=== PATIENT | male | born 1955 | race Caucasian/White ===

== ENCOUNTER 2016-06-28 06:08 | Inpatient (IN) | payer BC ==
[2016-06-07 11:13] VITALS: BMI 32.0
--- NOTE | 2016-06-07 11:46 | PAT Medication Instructions ---
Service Date Jun 07, 2016. Current Home Medication List Amlodipine Besylate-Olmesartan (Donaldo), 20 MG PO QAM Cholecalciferol (Vitamin D3), 1 TAB PO QAM [place] Dextrin (Fiber Powder), 1 DOSE PO BID Fish Oil ([place]-3), 2,000 MG PO QAM Hydrochlorothiazide (Hctz), 25 MG PO QAM Metoprolol Tartrate (Lopressor) (Lopressor), 25 MG PO BID Multivitamin (Multivitamin), 1 TAB PO QAM Naproxen (Aleve), 440 MG PO PRN Medication Instructions For Your Scheduled Surgery - Check with surgeon for instructions: Naproxen (Aleve), 440 MG PO PRN - Hold the following medications 2 weeks prior to surgery: Fish Oil ([place]-3), 2,000 MG PO QAM - Hold the following medications the morning of surgery: Multivitamin (Multivitamin), 1 TAB PO QAM [place] Dextrin (Fiber Powder), 1 DOSE PO BID Cholecalciferol (Vitamin D3), 1 TAB PO QAM Hydrochlorothiazide (Hctz), 25 MG PO QAM Amlodipine Besylate-Olmesartan (Donaldo), 20 MG PO QAM - Take the following medications the morning of surgery with a sip of water: Metoprolol Tartrate (Lopressor) (Lopressor), 25 MG PO BID - Take the following medications as scheduled the night before surgery: Metoprolol Tartrate (Lopressor) (Lopressor), 25 MG PO BID [place] Dextrin (Fiber Powder), 1 DOSE PO BID If you have any questions please call us at [phone] (Kayley Poole PA-C) or [phone] or [phone]
--- NOTE | 2016-06-07 12:23 | DIAGNOSTIC IMAGING REPORT ---
CHEST 2 VIEWS ROUTINE CLINICAL HISTORY: Preoperative chest COMPARISON STUDY: No previous studies for comparison. FINDINGS: The cardiac and mediastinal contours are normal. There is no evidence of focal pulmonary consolidation. There is no evidence of failure. No pleural effusions are visualized.[ There are minor basilar atelectatic changes IMPRESSION: No active disease in the chest. Electronically signed by: Ciro Nunez M.D. 06/07/2016 12:21 PM Dictated Date/Time: 06/07/2016 12:20 PM
[2016-06-07 12:51] LABS: URINE APPEARANCE CLEAR (CLEAR); URINE BILIRUBIN NEG (NEG); URINE COLOR YELLOW; URINE NITRITE NEG (NEG); URINE SPECIFIC GRAVITY 1.018 (1.000-1.030); UROBILINOGEN NEG (NEG); ZZUR CULT IF INDIC CLEAN CATCH NO
[2016-06-07 12:52] LABS: MANUAL MICROSCOPIC REQUIRED? NO; REVIEW REQ? NO
[2016-06-07 13:10] LABS: PROTHROMBIN TIME (PATIENT) 10.8 SECONDS (9.0-12.0)
[2016-06-07 13:13] LABS: BASO % 0.5 %; BASO ABS # 0.03 K/uL (0-0.2); COMPLETE YES; EOS % 2.2 %; IG% 0.2 %; LYMPH % 40.2 %; MEAN CORPUSCULAR HEMOGLOBIN 32.3 pg (25-34); MEAN CORPUSCULAR HGB CONC 36.3 g/dl (32-36); MEAN PLATELET VOLUME 10.7 fL (7.4-10.4); MONO % 10.1 %; NEUT % 46.8 %; PLATELET COUNT 175 K/uL (130-400); RED BLOOD COUNT 5.17 M/uL (4.7-6.1); WHITE BLOOD COUNT 5.47 K/uL (4.8-10.8)
[2016-06-07 13:25] LABS: BUN/CREATININE RATIO 11.1 (10-20); CALCIUM 9.3 mg/dl (8.5-10.1); CREATININE 0.98 mg/dl (0.60-1.40); POTASSIUM 3.7 mmol/L (3.5-5.1)
--- NOTE | 2016-06-27 13:03 | HISTORY & PHYSICAL EXAMINATION ---
DATE OF ADMISSION: 06/28/2016 CHIEF COMPLAINT: Right knee pain. HISTORY OF PRESENT ILLNESS: Bob is a 61-year-old male with a 10-year history of pain in his right knee. The patient rates his pain an 8/10. He has pain with his daily activities. He has limited standing and walking tolerance. Pain is worse with weightbearing. The patient has history of multiple knee arthroscopies. He has had anti-inflammatories, home exercise program, injections, bracing and physical therapy. He has failed conservative treatment and is scheduled for right total knee arthroplasty. PAST MEDICAL HISTORY: Negative. He denies heart disease, diabetes or DVT. PAST SURGICAL HISTORY: Right knee arthroscopy x2, tonsillectomy. SOCIAL HISTORY: The patient drinks 3-4 alcoholic drinks per week. He denies tobacco use. He lives in a 2-avi home. He is and retired. FAMILY HISTORY: Negative for DVT. MEDICATIONS: Metoprolol 25 mg twice daily, hydrochlorothiazide 25 mg daily, Donaldo 20 mg daily, multivitamin, fish oil, fiber, vitamin D, naproxen. ALLERGIES: None. REVIEW OF SYSTEMS: See HPI. Ten other systems reviewed, all negative. PHYSICAL EXAMINATION: VITAL SIGNS: Height 5 feet 11 inches, weight 232 pounds, BMI 32. GENERAL: This is a well-developed, well-nourished male who is alert and oriented x3. Mood and affect are appropriate. HEENT: Normocephalic, atraumatic. Mucous membranes are moist and intact. NECK: Supple without lymphadenopathy. HEART: Regular rate and rhythm without murmurs, rubs or gallops. LUNGS: Clear to auscultation without wheezes or rhonchi. ABDOMEN: Soft and nontender. Bowel sounds are equal and active. EXTREMITIES: No ecchymosis, redness or warmth. Thigh and calf are soft and nontender. He has varus deformity. Range of motion is from 0-115 degrees with +1 laxity. He is neurovascularly intact with +5/5 strength. X-RAY EXAMINATION: AP and lateral views show joint space narrowing and osteophyte formation. IMPRESSION: Degenerative joint disease, right knee. PLAN: The patient will be admitted for a right total knee arthroplasty. We will plan on aspirin for DVT prophylaxis. The patient's PCP is Dr. Regina Packer. He will have [facility] for home physical therapy.
[2016-06-28] VITALS (11 sets, daily range): BP systolic 108–141; BP diastolic 67–91; PULSE 73–87; TEMP 36.3–36.7; O2SAT 92–97; Ht 180.3 cm; Wt 105.9 kg
[~2016-06-28] VITALS: Ht 180.3 cm; Wt 105.9 kg
[~2016-06-28 06:08] MED LIST: ACETAMINOPHEN 500 MG TAB PO SCH; AMLO10TA PO; CEFAZOLIN 2000 MG/60 ML D5W 60 ML IV SCH; CHOL1000 PO; CORN1POW2 PO; CeleBREX 200 MG CAP PO SCH; DEXAMETHASONE 4 MG TAB PO SCH; FAMOTIDINE 20 MG TAB PO SCH; GABAPENTIN 300 MG CAP PO SCH; HYDR25TA4 PO; LACTATED RINGER'S 1000ML 1,000 ML IV SCH; LACTATED RINGER'S 1000ML 500 ML IV ONE; LACTATED RINGER'S 1000ML IV SCH; METO25TA56 PO; METOCLOPRAMIDE HCL 10 MG TAB PO SCH; MULT-506 PO; NAPR1TAB9 PO; OMEG10007 PO; OXYCODONE HCL 10 MG TABCR (OXYCONTIN) PO SCH; POLYMYXIN B SULFATE 100,000 UNITS in NSS 100ML IR SCH; ROPIVACAINE 5MG/ML 30 ML 150 MG, BUPIVACAINE/EPINEPHR 0.5% MPF 30 ML, KETOROLAC TROMETH... INFIL SCH; VANCOMYCIN INJ 400 MG in NSS 100ML IR SCH
[2016-06-28] MEDS ORDERED: PROPOFOL IV EMULSION 10 MG/ML 20 ML VIAL IV ONE ×2 (06:10→09:34)
[2016-06-28] MEDS ORDERED: MIDAZOLAM HCL 1 MG/ML 2ML VIAL ONE (06:10)
[2016-06-28] MEDS ORDERED: BUPIVACAINE 0.25% 30 ML VIAL ONE (06:26)
[2016-06-28] MEDS ORDERED: BUPIVACAINE 0.5 % 5 MG/1 ML PF 10ML VIAL ONE (06:26)
[2016-06-28] MEDS ORDERED: POVIDONE-IODINE OP SOLN 30 ML BTL ONE (06:56)
[2016-06-28] MEDS ORDERED: ORTHO JOINT ANESTHETIC ONE (06:56)
[2016-06-28] MEDS ORDERED: BACITRACIN 50000 UNIT VIAL ONE (06:56)
[2016-06-28] MEDS ORDERED: BUPIVACAINE/EPINEPHRINE 0.25% 1:200,000 30 ML VIAL ONE (06:56)
[2016-06-28] MEDS ORDERED: BUPIVACAINE/EPINEPHRINE 0.5% MPF 1:200,000 30 ML VIAL ONE (07:02)
--- NOTE | 2016-06-28 07:08 | History & Physical Bridge Note ---
H&P Re-Evaluation Bridge Note: I have examined the patient, reviewed the History & Physical and in the interval since the performance of the History & Physical I have noted the following changes of clinical significance: No changes noted
[2016-06-28] MEDS: TRANEXAMIC ACID INJ 1,000 MG in SODIUM CHLORIDE 0.9% 100ML 100 ML IV SCH ×2 (07:30→13:20)
[2016-06-28] MEDS ORDERED: ONDANSETRON INJ 2 MG/ML 2 ML VIAL IV PRN ×2 (09:15→10:30)
[2016-06-28] MEDS ORDERED: HYDROmorphone INJ 2 MG/ML SYR/VIAL IV PRN (09:15)
[2016-06-28] MEDS ORDERED: ATROPINE SULFATE 0.1 MG/ML 5ML SYR IV PRN (09:15)
[2016-06-28] MEDS ORDERED: EpHEDrine SULFATE INJ 50 MG/ML AMP IV PRN (09:15)
[2016-06-28] MEDS ORDERED: KETOROLAC TROMETHAMINE 30 MG/ML VIAL IV. PRN ×2 (09:15→10:30)
[2016-06-28] MEDS ORDERED: PHENYLEPHRINE 100MCG/ML 5ML SYR IV PRN (09:15)
[2016-06-28] MEDS ORDERED: POVIDONE-IODINE OP SOLN 30 ML BTL TOP ONE (10:26)
[2016-06-28] MEDS ORDERED: BUPIVACAINE/EPINEPHRINE 0.25% 1:200,000 30 ML VIAL INJ ONE (10:26)
[2016-06-28] MEDS ORDERED: BACITRACIN 50000 UNIT VIAL IR ONE (10:26)
[2016-06-28] MEDS ORDERED: ALUMINUM/MAGNESIUM/SIMETH (MAALOX MAX) 30 ML UDC PO PRN (10:30)
[2016-06-28] MEDS ORDERED: ZOLPIDEM TARTRATE 5 MG TAB PO PRN (10:30)
[2016-06-28] MEDS ORDERED: METOCLOPRAMIDE HCL INJ 5 MG/ML 2 ML VIAL IV PRN (10:30)
[2016-06-28] MEDS ORDERED: SOD PHOSPHATE/SOD BIPHOSPHATE ENEMA 132 ML BTL PR PRN (10:30)
[2016-06-28] MEDS ORDERED: MAGNESIUM HYDROXIDE SUSP 30 ML UDC PO PRN (10:30)
[2016-06-28] MEDS ORDERED: DiphenhydrAMINE HCL 50 MG/ML VIAL IV PRN (10:30)
[2016-06-28] MEDS ORDERED: MoRPHine SULFATE 2 MG/ML CARP IV PRN (10:30)
[2016-06-28] MEDS ORDERED: BISACODYL 10 MG SUPP PR PRN (10:30)
[2016-06-28] MEDS ORDERED: TRAMADOL HCL 50 MG TAB PO PRN (10:30)
--- NOTE | 2016-06-28 10:30 | [facility] Post Operative Brief Note ---
Immediate Operative Summary Operative Date Jun 28, 2016. Pre-Operative Diagnosis Degenerative joint disease, right knee Post-Operative Diagnosis Degenerative joint disease, right knee Procedure(s) Performed Right Total Knee Arthroplasty Surgeon Dr. Silvio Montgomery Admissions Representative Surgeon(s) Roselyn Lennon PA-C Estimated Blood Loss 50 mL Findings SEVERE DJD Specimens A: Right knee bone and tissue Complication(s) None Disposition Recovery Room / PACU
--- NOTE | 2016-06-28 11:28 | DIAGNOSTIC IMAGING REPORT ---
RIGHT KNEE 2 VIEWS CLINICAL HISTORY: Postop examination COMPARISON: None. DISCUSSION: There are postsurgical changes of a total right knee arthroplasty and patellar resurfacing. The femoral and tibial components appear well seated. There are overlying surgical drains. There is air within soft tissues consistent with history of recent surgery. IMPRESSION: Postsurgical changes of a total right hip arthroplasty. Electronically signed by: Ciro Nunez M.D. 06/28/2016 11:27 AM Dictated Date/Time: 06/28/2016 11:26 AM
--- NOTE | 2016-06-28 11:34 | Anesthesiology Progress Note ---
Anesthesia Post Op Note Date & Time Jun 28, 2016 at 11:35 Vital Signs Pain Intensity: 0 Vital Signs Past 12 Hours Date Time Temp Pulse Resp B/P Pulse Ox O2 Delivery O2 Flow Rate FiO2 06/28/16 11:30 86 19 131/80 96 Nasal Cannula 2 06/28/16 11:20 86 20 130/81 95 Nasal Cannula 2 06/28/16 11:10 86 16 133/79 96 Nasal Cannula 2 06/28/16 11:03 36.4 93 16 111/70 97 Nasal Cannula 2 06/28/16 06:31 36.4 73 20 141/91 97 Room Air Notes Mental Status: alert / awake / arousable, participated in evaluation Pt Amnestic to Procedure: Yes Nausea / Vomiting: adequately controlled Pain: adequately controlled Airway Patency, RR, SpO2: stable & adequate BP & HR: stable & adequate Hydration State: stable & adequate Anesthetic Complications: no major complications apparent
[2016-06-28] MEDS: D5W AND 1/2NSS + 20MEQ KCL 1,000 ML IV SCH ×2 (13:48→22:53)
[2016-06-28] MEDS: ACETAMINOPHEN 500 MG TAB PO SCH ×2 (14:17→21:36)
[2016-06-28] MEDS ORDERED: TRANEXAMIC ACID INJ 1,000 MG in SODIUM CHLORIDE 0.9% 100ML 100 ML IV SCH (17:30)
[2016-06-28] MEDS: CEFAZOLIN IV 2,000 MG in DEXTROSE 5% 50ML 50 ML IV SCH (17:40)
[2016-06-28] MEDS: METOPROLOL TARTRATE 25 MG TAB PO SCH (20:40)
[2016-06-28] MEDS: CeleBREX 200 MG CAP PO SCH (20:40)
[2016-06-28] MEDS: OXYCODONE HCL 10 MG TABCR (OXYCONTIN) PO SCH (20:40)
[2016-06-28] MEDS: ASPIRIN 81 MG ECTAB PO SCH (20:40)
[2016-06-28] MEDS ORDERED: SENNA 8.6 MG TAB PO SCH (21:00)
--- NOTE | 2016-06-29 00:20 | OPERATIVE REPORT ---
DATE OF OPERATION: 06/28/2016 PREOPERATIVE DIAGNOSIS: Degenerative arthritis, right knee. POSTOPERATIVE DIAGNOSIS: Same. PROCEDURE: Right total knee with patient matched implant. SURGEON: Dr. Montgomery. CASE SUPERVISOR: GRACIELA Panda. ANESTHESIA: Spinal. BLOOD LOSS: 50 mL. REPLACEMENT FLUIDS: 1700 mL crystalloid. DRAINS: Hemovac x2. CULTURES: None. COMPLICATIONS: None. COMPONENTS USED: [employer] Alyticsmarlin Knee System: Femur size 7, tibia size 6 x 9, patella size 38. NOTE: GRACIELA Panda was present and assisted throughout due to the complicated nature of this case. She helped with preparation and set up, first assisted throughout and personally closed the capsule, subcutaneous and skin layers and applied the postoperative dressing. DESCRIPTION: Following satisfactory spinal, the patient was supine. A tourniquet was placed on the lower extremity but not inflated. The lower extremity was prepared with ChloraPrep and draped sterilely. Following a surgical time-out, a midline incision was made with a trivector approach. The knee showed grade 4 changes throughout with significant wear. The cruciate ligaments were excised. The patient matched femoral block was applied. Femoral distal rotation and resection were set and completed. The 4-in-1 block was used to finish preparation of the femur. The patient matched tibial block was applied. Tibial resection was completed. The patella was freehand cut. Soft tissue balancing was completed and a trial reduction showed good tensioning and stability on the collateral ligaments, full extension and flexion to more than 120 degrees. The trial components were removed. The orthopedic cocktail was placed after irrigation, the components were cemented using Simplex G cement. A Betadine soak was performed. When the cement had hardened, the Betadine was irrigated. Two drains were placed. The arthrotomy was closed with a running suture of 0 V-Loc. Subcutaneous tissues with 2-0 Vicryl. the skin with a running subcuticular stitch of 3-0 V-Loc. Dermabond and a dry dressing were applied. The patient was returned to his bed in stable condition. I attest to the content of the Intraoperative Record and any orders documented therein. Any exceptio ns are noted below.
[2016-06-29] MEDS: CEFAZOLIN IV 2,000 MG in DEXTROSE 5% 50ML 50 ML IV SCH (01:36)
[2016-06-29] MEDS: OXYCODONE HCL IR 5 MG TAB (IMMEDIATE RELEASE) PO PRN ×3 (01:54→13:45)
[2016-06-29 03:21] VITALS: BP 106/66; PULSE 77; TEMP 36.5; O2SAT 94
[2016-06-29] MEDS: ACETAMINOPHEN 500 MG TAB PO SCH ×2 (05:44→13:45)
[2016-06-29 06:12] LABS: HEMATOCRIT 37.6 % (42-52); MEAN CORPUSCULAR HEMOGLOBIN 32.5 pg (25-34); MEAN CORPUSCULAR HGB CONC 36.2 g/dl (32-36); MEAN PLATELET VOLUME 10.5 fL (7.4-10.4); PLATELET COUNT 157 K/uL (130-400); RED BLOOD COUNT 4.18 M/uL (4.7-6.1); WHITE BLOOD COUNT 14.38 K/uL (4.8-10.8)
[2016-06-29 06:44] LABS: BUN/CREATININE RATIO 13.3 (10-20); CALCIUM 8.4 mg/dl (8.5-10.1); CREATININE 1.1 mg/dl (0.60-1.40); POTASSIUM 4.1 mmol/L (3.5-5.1)
[2016-06-29 07:15] VITALS: BP 135/77; PULSE 63; TEMP 36.4; O2SAT 96
--- NOTE | 2016-06-29 07:48 | Orthopedic Progress Note ---
Orthopedic Progress Note Date of Service Jun 29, 2016. Subjective Post OP Day: 1 Reports: feeling well, pain controlled w PO medications, Denies: calf pain, complaints, light headedness, nausea / vomiting Objective calves soft nontender, N/V intact, dressing C/D/I, toes mobile, hemovac drainage (200 LAST SHIFT) Date Time Temp Pulse Resp B/P Pulse Ox O2 Delivery O2 Flow Rate FiO2 06/29/16 07:39 Room Air 06/29/16 07:15 36.4 63 16 135/77 96 Room Air 06/29/16 03:21 36.5 77 17 106/66 94 Room Air 06/28/16 23:30 36.7 73 16 108/67 97 Room Air 06/28/16 23:00 Room Air 06/28/16 20:38 73 116/67 92 Room Air 06/28/16 19:20 36.4 82 17 123/74 94 Room Air 06/28/16 15:16 36.3 79 17 122/72 94 Room Air 0.5 06/28/16 14:50 85 18 116/70 96 06/28/16 13:46 87 16 119/68 94 Nasal Cannula 2.0 06/28/16 12:45 78 16 111/73 95 Nasal Cannula 2.0 06/28/16 12:29 77 16 120/71 95 Nasal Cannula 2.0 06/28/16 12:10 96 Nasal Cannula 2.0 06/28/16 11:50 Nasal Cannula 2.0 06/28/16 11:50 36.4 79 12 122/74 96 Nasal Cannula 2.0 06/28/16 11:50 Nasal Cannula 2.0 06/28/16 11:40 36.7 88 22 130/80 96 Nasal Cannula 2 06/28/16 11:30 86 19 131/80 96 Nasal Cannula 2 06/28/16 11:20 86 20 130/81 95 Nasal Cannula 2 06/28/16 11:10 86 16 133/79 96 Nasal Cannula 2 06/28/16 11:03 36.4 93 16 111/70 97 Nasal Cannula 2 Laboratory Results 24 Hours: Test 06/29/16 05:51 Hematocrit 37.6 % Hemoglobin 13.6 g/dL Assessment & Plan Assessment: POD 1 TKA Plan: HOME TODAY W [facility] Inhouse Planning Pain Management: Celebrex, Oxycontin, PO Tylenol, Oxy IR DVT Prophylaxis: TEDs, SCDs, ASA Discharge Planning Discharge Planning: home with home health Pain Management: Celebrex, Oxycontin, PO Tylenol, Oxy IR DVT Prophylaxis: TEDs, ASA Therapy: Physical Therapy
[2016-06-29] MEDS: ASPIRIN 81 MG ECTAB PO SCH (08:18)
[2016-06-29] MEDS: METOPROLOL TARTRATE 25 MG TAB PO SCH (08:19)
[2016-06-29] MEDS: CeleBREX 200 MG CAP PO SCH (08:19)
--- NOTE | 2016-06-29 08:19 | Discharge Instructions ---
Discharge Instructions Admission Reason for Admission: Right Knee Degenerative Arthritis Discharge Discharge Diagnosis / Problem: sp right TKA Discharge Goals Goal(s): Decrease discomfort, Improve function, Increase independence Activity Recommendations Activity Limitations: per Instructions/Follow-up section . Instructions / Follow-Up Instructions / Follow-Up ACTIVITY RECOMMENDATIONS: SELF CARE INSTRUCTIONS AFTER TOTAL KNEE REPLACEMENT A. You may need to continue a physical therapy program after discharge from the hospital. There are several options available to you. Your doctor will assist you in selecting the best one for you. 1. An out-patient facility 2 to 3 times a week for therapy or home therapy. 2. Continue working on all exercises taught to you in the hospital. Your goals should be to increase bending of your knee to 90 degrees and beyond and to fully straighten your knee. B. You may progress at your own pace from walking with a walker or crutches to a cane; then to no assistive devices. C. Make walking a part of your daily routine. Be up as much as comfortable with rest periods throughout the day. Rest with leg elevation is very important. Use the ice wrap frequently for the first 3-4 weeks. D. There are no restrictions on activities. You may ride in a car, shop, participate in photographic processor and all social activities. E. Wear the long elastic stockings (AMIE hose) 20 hours a day for 2 weeks after surgery. They can be removed several times a day for laundering and for a bath. F. You may shower, no tub baths until cleared by your doctor. SPECIAL CARE INSTRUCTIONS: VERY IMPORTANT TO READ AND REVIEW A. There are a few signs you need to watch for after you are home. Call [facility] if you notice any of the followin. Increased severe knee pain. Some pain is expected especially when you exercise. 2. Increased swelling in your leg or knee; pain or swelling of the calf muscle in either lower leg. 3. Any fluid drainage from the incision. 4. Shortness of breath or chest pain. B. Please call [facility] at if you have any concerns or questions about your operation or recovery. The doctor or his nurse will return your call promptly. C. You must take antibiotics before dental work, bladder, bowel or other surgery. Your doctor will provide you with a permanent care to carry describing this precaution. IMPORTANT: * REMEMBER TO TAKE ASPIRIN, 81 MG, TWICE DAILY FOR 4 WEEKS UNLESS OTHERWISE DIRECTED. THIS IS YOUR BLOOD THINNER. * HIGH RISK PATIENTS MAY BE PRESCRIBED A STRONGER BLOOD THINNER. THIS WILL BE PROVIDED AT DISCHARGE. * CALL IF INCREASED PAIN, REDNESS, DRAINAGE OR FEVER GREATER THAT 101. * WEAR AMIE HOSE 20 HOURS PER DAY FOR 2 WEEKS. DERMABOND Prineo- This is a mesh tape dressing that is covered with glue. It should remain in place until the incision is properly healed, usually 10-14 days. This dressing is designed to naturally slough off. You may trim the excess mesh tape as it peels off. Incision may be briefly wet in a shower. Dry immediately by blotting with a clean, dry towel. Do not bath or swim until instructed by your doctor. Do not scratch, rub, or pick at the dressing. Do not apply any topical ointments or lotions until dressing is completely removed and/or instructed by your doctor. There may be a small piece of suture material at one end of your incision. Do not pull or trim this. If it is bothersome or catching on clothing, you may cover it with a band-aid. FOLLOW UP VISIT: If appointment is not already scheduled: Please call [facility] to make a follow-up appointment for 2 weeks after your surgery at . Current Hospital Diet Patient's current hospital diet: Regular Diet Discharge Diet Recommended Diet: Regular Diet Procedures Procedures Performed: Right Total Knee Arthroplasty Pending Studies Studies pending at discharge: no Medical Emergencies . Who to Call and When: Medical Emergencies: If at any time you feel your situation is an emergency, please call 911 immediately. . Non-Emergent Contact Non-Emergency issues call your: Primary Care Provider . "Provider Documentation" section prepared by Leonor Lennon. VTE Core Measure Inpt VTE Proph given/why not?: Other Anticoagulation, T.E.D. Stockings, SCD's
[2016-06-29] MEDS ORDERED: OXYSR10 PO (08:20)
[2016-06-29] MEDS ORDERED: CLB200 PO (08:20)
[2016-06-29] MEDS ORDERED: ONDA8TAB6 PO (08:20)
[2016-06-29] MEDS ORDERED: SNK PO (08:20)
[2016-06-29] MEDS ORDERED: ACET-1138 PO (08:20)
[2016-06-29] MEDS ORDERED: RXC5 PO (08:20)
[2016-06-29] MEDS ORDERED: ASPEC81 PO (08:20)
[2016-06-29] MEDS: OXYCODONE HCL 10 MG TABCR (OXYCONTIN) PO SCH (08:21)
[2016-06-29] MEDS ORDERED: PANTOprazole SOD 40 MG TAB PO SCH (09:00)
[2016-06-29] MEDS ORDERED: HYDROCHLOROTHIAZIDE 25 MG TAB PO SCH (09:00)
[2016-06-29] MEDS ORDERED: MULTIVITAMIN TAB PO SCH (09:00)
[2016-06-29] MEDS ORDERED: CHOLECALCIFEROL 1000 INTER.UNIT TAB PO SCH (09:00)
[2016-06-29] MEDS: D5W AND 1/2NSS + 20MEQ KCL 1,000 ML IV SCH (09:34)
[2016-06-29 11:00] VITALS: BP 116/70; PULSE 66; TEMP 36.8; O2SAT 95
--- NOTE | 2016-07-11 14:21 | DISCHARGE SUMMARY ---
DISCHARGE DIAGNOSIS: Degenerative joint disease, right knee. SECONDARY DIAGNOSIS: None. CONSULTS: None. COMPLICATIONS: None. PROCEDURE: The patient underwent a right total knee arthroplasty with Dr. Montgomery on 06/28/2016. BRIEF HISTORY: Please see previously dictated history and physical. HOSPITAL SUMMARY: The patient was admitted on the above day for the above procedure. Procedure went without complication. Postop day 1, the patient was feeling well without complaints. He denied chest pain, shortness of breath. Vital signs were stable. He was afebrile. Dressing was clean, dry and intact. He was neurovascularly intact. Calves were soft and nontender. Hemovac drained 200 mL. Hemoglobin was 13.6. The patient began physical therapy per protocol. He was discharged to home later that day with [facility] home physical therapy. For further review please see the chart. Lab, x-ray data and discharge instructions as per chart.
== END 2016-06-29 14:10 | disposition home health service (06) | DRG 470 ==
LOC: ENRESERVDT → ENRESERVTM → C.ACU 06:08 → C.3E 06:40
PROVIDERS: ADMIT Orthopaedic Surgery; ATTEND Orthopaedic Surgery
PROC: 0SRC0J9 Replacement of Right Knee Joint with Synthetic Substitute, Cemented, Open Approach (ICD-10-PCS; principal; 2016-06-28 08:15)
DX: M17.11 Unilateral primary osteoarthritis, right knee (principal); I10 Essential (primary) hypertension; Z98.890 Other specified postprocedural states; Z79.899 Other long term (current) drug therapy

== ENCOUNTER → 2017-08-31 | Day surgery (SDC) | payer BC ==
[2017-08-23 09:46] VITALS: BMI 33.0
--- NOTE | 2017-08-23 10:17 | PAT Medication Instructions ---
Service Date Aug 23, 2017. Current Home Medication List Amlodipine Besylate-Olmesartan (Donaldo), 20 MG PO QAM Hydrochlorothiazide (Hctz), 25 MG PO QAM Icosapent Ethyl (Vascepa), 4-6 GM PO daily Metoprolol Tartrate (Lopressor) (Lopressor), 25 MG PO BID Multivitamin (Multivitamin), 1 TAB PO QAM Psyllium (Metamucil), Unknown Dose PO BID [antibiotic ] Medication Instructions For Your Scheduled Surgery -Continue as directed: [antibiotic ] - Hold the following medications starting today: Icosapent Ethyl (Vascepa), 4-6 GM PO daily - Hold the following medications the morning of surgery: Amlodipine Besylate-Olmesartan (Donaldo), 20 MG PO QAM Hydrochlorothiazide (Hctz), 25 MG PO QAM Multivitamin (Multivitamin), 1 TAB PO QAM Psyllium (Metamucil), Unknown Dose PO BID - Take the following medications the morning of surgery with a sip of water: Metoprolol Tartrate (Lopressor) (Lopressor), 25 MG PO BID - Take the following medications as scheduled the night before surgery: Psyllium (Metamucil), Unknown Dose PO BID Metoprolol Tartrate (Lopressor) (Lopressor), 25 MG PO BID If you have any questions please call us at [phone] or [phone] or [phone]
[~2017-08-31] VITALS: Ht 180.3 cm; Wt 107.8 kg
[~2017-08-31] MED LIST changes: -ACETAMINOPHEN 500 MG TAB PO SCH; +ATROPINE SULFATE 0.1 MG/ML 5ML SYR IV PRN; +BUPIVACAINE/EPINEPHRINE 0.5% MPF 1:200,000 30 ML VIAL ONE; -CEFAZOLIN 2000 MG/60 ML D5W 60 ML IV SCH; +CEFAZOLIN 2000MG IV PUSH 15 ML IV SCH; -CHOL1000 PO; -CORN1POW2 PO; -CeleBREX 200 MG CAP PO SCH; -DEXAMETHASONE 4 MG TAB PO SCH; +EpHEDrine SULFATE INJ 50 MG/ML AMP IV PRN; -FAMOTIDINE 20 MG TAB PO SCH; +FENTANYL CITRATE INJ 50 MCG/1 ML 2 ML VIAL ONE; +FLUMAZENIL 0.1 MG/1 ML 10 ML VIAL IV PRN; -GABAPENTIN 300 MG CAP PO SCH; +HYDR-5688 PO; +HYDROCODONE/ACETAMIN 5/325MG TAB PO PRN; +HYDROmorphone INJ 2 MG/ML SYR/VIAL IV PRN; +ICOS1CAP PO; +KETOROLAC TROMETHAMINE 30 MG/ML VIAL ONE; +LABETALOL HCL IV 5 MG/ML 20ML IV PRN; -LACTATED RINGER'S 1000ML 500 ML IV ONE; -LACTATED RINGER'S 1000ML IV SCH; +LIDOCAINE HCL 2% 2 ML VIAL (20MG/ML) ONE; +MEPERIDINE HCL 25 MG/ML CARP IV PRN; -METOCLOPRAMIDE HCL 10 MG TAB PO SCH; +MIDAZOLAM HCL 1 MG/ML 2ML VIAL ONE; +MoRPHine SULFATE 2 MG/ML CARP IV PRN; +NALOXONE HCL 0.4 MG/1 ML VIAL/CARP IV PRN; -NAPR1TAB9 PO; -OMEG10007 PO; +ONDANSETRON INJ 2 MG/ML 2 ML VIAL IV PRN; +ONDANSETRON INJ 2 MG/ML 2 ML VIAL ONE; -OXYCODONE HCL 10 MG TABCR (OXYCONTIN) PO SCH; +PHENYLEPHRINE 100MCG/ML 5ML SYR IV PRN; +PHENYLEPHRINE 100MCG/ML 5ML SYR ONE; -POLYMYXIN B SULFATE 100,000 UNITS in NSS 100ML IR SCH; +PROPOFOL IV EMULSION 10 MG/ML 20 ML VIAL IV ONE; +PSYL48.59 PO; +ROCURONIUM BROMIDE 10 MG/ML 5 ML VIAL IV ONE; -ROPIVACAINE 5MG/ML 30 ML 150 MG, BUPIVACAINE/EPINEPHR 0.5% MPF 30 ML, KETOROLAC TROMETH... INFIL SCH; -VANCOMYCIN INJ 400 MG in NSS 100ML IR SCH; +antibiotic
[2017-08-31 05:40] VITALS: BP 132/95; PULSE 88; TEMP 36.7; O2SAT 97; Ht 180.3 cm; Wt 107.8 kg
--- NOTE | 2017-08-31 08:13 | [facility] Post Operative Brief Note ---
Immediate Operative Summary Operative Date Aug 31, 2017. Pre-Operative Diagnosis RIGHT INGUANAL HERNIA , UMBILICAL HERNIA Post-Operative Diagnosis same with cord lipoma Procedure(s) Performed 1. umbilical hernia repair 2. open right inguinal hernia repair with plug/patch mesh 3. excision of cord lipoma Surgeon DR. TRONCOSO Department Administrator Surgeon(s) Odalys MEDINA PAC Estimated Blood Loss 5 cc Findings Consistent with Post-Op Diagnosis Specimens none Complication(s) none
--- NOTE | 2017-08-31 08:28 | Discharge Instructions ---
Discharge Instructions Date of Service Aug 31, 2017. Visit Reason for Visit: Right Inguinal Hernia, Umbilical Hernia Discharge Discharge Diagnosis / Problem: repair of hernias Discharge Goals Goal(s): Decrease discomfort Activity Recommendations Activity Limitations: as noted below Lifting Limitations: no more than 10 pounds Shower/Bathe: no limitations Driving or Machine Use: when pain free Anesthesia . Post Anesthesia Instructions: If you have had General Anesthesia or IV Sedation: * Do not drive today. * Resume driving when surgeon permits. * Do not make important decisions or sign legal documents today. * Call surgeon for: 1. Temperature elevations greater than 101 degrees F. 2. Uncontrollable pain. 3. Excessive bleeding. 4. Persistent nausea and vomiting. 5. Medication intolerance (nausea, vomiting or rash). * For nausea and vomiting use only clear liquids such as: tea, soda, bouillon until nausea subsides, then gradually increase diet as tolerated. * If you have any concerns or questions, call your surgeon's office. If physician is unavailable and it is an emergency, call 911 or go to the nearest emergency room. . Instructions / Follow-Up Instructions / Follow-Up Dr. Khan in 2 weeks as planned, call [phone] for any questions The bandage over umbilical incision is waterproof, you can shower over it and remove it in 2 days Diet Recommendations Recommended Home Diet: no limitations Procedures Procedures Performed: 1. umbilical hernia repair 2. open right inguinal hernia repair with plug/patch mesh 3. excision of cord lipoma Pending Studies Studies pending at discharge: no Medical Emergencies . Who to Call and When: Medical Emergencies: If at any time you feel your situation is an emergency, please call 911 immediately. . Non-Emergent Contact Non-Emergency issues call your: Surgeon Call Non-Emergent contact if: you have a fever, temperature is above 101.5, your pain is not controlled, wound has increased redness, you have any medication questions . . "Provider Documentation" section prepared by Abhijeet Perez. .
--- NOTE | 2017-08-31 08:38 | [facility] Operative Report ---
Operative Report Operative Date Aug 31, 2017. Pre-Operative Diagnosis RIGHT INGUANAL HERNIA , UMBILICAL HERNIA Post-Operative Diagnosis same with cord lipoma Procedure(s) Performed 1. umbilical hernia repair 2. open right inguinal hernia repair with plug/patch mesh 3. excision of cord lipoma Surgeon DR. TRONCOSO Label Coder Surgeon(s) Odalys MEDINA PAC Estimated Blood Loss 5 cc Specimens none Anesthesia Type General Complication(s) none Description of Procedure After informed consent was obtained the patient was taken the operating room and placed in supine position. After successful placement of the laryngeal mask airway the groin and mid-abdomen was shaved and sterilely prepped and draped in usual fashion. I began at the umbilical hernia. I made a curvilinear infraumbilical incision and carried this down through the soft tissue using electrocautery. Once down to the fascia I used a Sweta clamp to come around the superior aspect of the umbilicus. I used electrocautery to take down the umbilical stalk which revealed about a 1 cm umbilical hernia. I excised the sac in its entirety and discarded it. I closed the fascia primarily using #1 Ethibond in simple interrupted fashion. Once the hernia was closed I thoroughly irrigated the wound. We then tacked the umbilicus back to the fascia using 0 Vicryl. I then closed the deep space using 3-0 Vicryl and the skin closed using 4-0 Monocryl. Marcaine was injected around for postoperative analgesia and skin glue used as dressing. An inguinal incision was made with a 15 blade scalpel and carried down through the soft tissue using electrocautery. The external oblique aponeurosis was skeletonized. A fresh blade was used to make an incision and then Metzenbaum scissors were used to extend this distally through the external ring as well as for several centimeters proximally. Once in the inguinal canal I used blunt finger dissection to free up the cord and cord structures. I was able to gently tease the cord off of the pubic bone and placed a [place] drain around it. There was no evidence of a direct hernia. We inspected the cord and cord structures using blunt dissection with small amounts of electrocautery. There was a large cord lipoma as well as a large indirect hernia sac. We clamped the lipoma at its neck excise it and tied it off using a 3-0 Vicryl tie. Next we dissected the hernia back to its neck and then dunked it back into the abdominal cavity. It was large and unable to stay self reduced therefore I decided to use a polypropylene plug and patch technique.. We thoroughly irrigated the wound. I placed the plug into the discrete defect and secured it to underlying muscle using 0 Ethibond in interrupted fashion. Next I used a polypropylene perez-holed mesh as an onlay. It was secured distally to Kevin's ligament, laterally along the shelving portion of Poupart's ligament and medially along the midline musculature. 0 Ethibond was used for the suturing. The "arms" of the mesh were wrapped around behind the cord and cord structures and again secured to underlying muscle. The mesh laid nice and flat and tension -free and did not impinge on the cord structures themselves. We thoroughly irrigated the wound. There was adequate hemostasis. I injected Marcaine around the edges of the mesh for postoperative analgesia. We then closed the external oblique aponeurosis with 2-0 Vicryl in a running fashion. Soft tissue was irrigated and closed in multiple layers using 3-0 Vicryl for the deep layers and 4-0 Monocryl for the skin. Some additional Marcaine was injected around the skin incision. We then used a skin glue as a dressing. The patient was awaken extubated and transferred to recovery in stable condition. My physician's lead assistant manager was present throughout the entire procedure. he helped prep the patient. Helped with retraction throughout the case to aid my dissection, assisted with wound closure as well as dressing placement. I attest to the content of the Intraoperative Record and any orders documented therein. Any exceptions are noted below. I attest to the content of the Intraoperative Record and any orders documented therein. Any exceptions are noted below.
[2017-08-31] MEDS: FENTANYL CITRATE INJ 50 MCG/1 ML 2 ML VIAL IV PRN ×2 (08:47→08:55)
--- NOTE | 2017-08-31 09:00 | Anesthesiology Progress Note ---
Anesthesia Post Op Note Date & Time Aug 31, 2017 at 08:59 Vital Signs Pain Intensity: 3 Vital Signs Past 12 Hours Date Time Temp Pulse Resp B/P (MAP) Pulse Ox O2 Delivery O2 Flow Rate FiO2 08/31/17 08:57 80 17 96 08/31/17 08:57 80 17 08/31/17 08:55 147/84 08/31/17 08:52 79 18 08/31/17 08:52 79 18 95 08/31/17 08:51 143/89 08/31/17 08:47 80 16 95 08/31/17 08:47 81 16 08/31/17 08:46 148/81 08/31/17 08:42 79 18 95 08/31/17 08:42 78 18 08/31/17 08:40 139/81 08/31/17 08:39 142/80 08/31/17 08:37 36.2 79 12 148/75 (106) 95 Oxymask 10 08/31/17 08:37 79 18 08/31/17 08:37 79 18 148/75 96 08/31/17 05:40 36.7 88 18 132/95 (107) 97 Room Air Notes Mental Status: alert / awake / arousable, participated in evaluation Pt Amnestic to Procedure: Yes Nausea / Vomiting: adequately controlled Pain: adequately controlled Airway Patency, RR, SpO2: stable & adequate BP & HR: stable & adequate Hydration State: stable & adequate Anesthetic Complications: no major complications apparent
[2017-08-31 09:35] VITALS: BP 135/70; PULSE 80; TEMP 36.5; O2SAT 96
[2017-08-31 10:05] VITALS: BP 134/70; PULSE 79; TEMP 36.5; O2SAT 98
== END | disposition home or self-care (01) ==
LOC: C.ACU 05:15
PROVIDERS: ATTEND Surgery
DX: K40.90 Unilateral inguinal hernia, without obstruction or gangrene, not specified as recurrent (principal); K42.9 Umbilical hernia without obstruction or gangrene; I10 Essential (primary) hypertension; E66.9 Obesity, unspecified; Z68.33 Body mass index [BMI] 33.0-33.9, adult; Z98.890 Other specified postprocedural states; Z79.899 Other long term (current) drug therapy; M19.90 Unspecified osteoarthritis, unspecified site; Z96.651 Presence of right artificial knee joint; Z90.89 Acquired absence of other organs; Z80.3 Family history of malignant neoplasm of breast